=== PATIENT | female | born 1965 | race Caucasian/White ===

== ENCOUNTER 2017-10-18 12:53 | Emergency (ER) | payer MEDICARE, OTHER ==
[~2017-10-18] VITALS: Ht 170.2 cm; Wt 72.7 kg
[2017-10-18] MEDS ORDERED: KETOROLAC TROMETHAMINE 60 MG/2 ML VIAL IM ONE (15:15)
[2017-10-18 16:15] VITALS: BP 126/68
== END 2017-10-18 16:30 | disposition home or self-care (01) ==
LOC: EMS 12:55
DX: S76.811A Strain of other specified muscles, fascia and tendons at thigh level, right thigh, initial encounter (principal); G89.29 Other chronic pain; M54.5 Low back pain; Z91.030 Bee allergy status; Z88.1 Allergy status to other antibiotic agents; X58.XXXA Exposure to other specified factors, initial encounter; Y93.89 Activity, other specified; Y92.89 Other specified places as the place of occurrence of the external cause; Y99.8 Other external cause status
CPT/HCPCS: 96372; 99283; J1885

== ENCOUNTER 2017-12-21 13:40 | Emergency (ER) | payer MEDICARE, OTHER ==
[~2017-12-21] VITALS: Ht 167.6 cm; Wt 102.0 kg
[2017-12-21] MEDS ORDERED: GABA-531 PO (14:02)
[2017-12-21] MEDS ORDERED: VENL-67 PO (14:02)
[2017-12-21] MEDS ORDERED: IBUP-2070 PO (14:02)
[2017-12-21] MEDS ORDERED: OLAN10TA3 PO (14:02)
[2017-12-21] MEDS ORDERED: LORA-192 PO (14:02)
[2017-12-21] MEDS ORDERED: ARIP15TA7 PO (14:02)
[2017-12-21] MEDS ORDERED: PERCT10 PO (14:02)
[2017-12-21] MEDS ORDERED: KETOROLAC TROMETHAMINE 60 MG/2 ML VIAL IM ONE (14:15)
[2017-12-21] MEDS ORDERED: HYDROCODONE/ACETAMINOPHEN 5-325 MG TABLET PO ONE (14:15)
[2017-12-21 15:26] VITALS: BP 106/62
== END 2017-12-21 16:02 | disposition home or self-care (01) ==
LOC: EMS 13:41
DX: S93.401A Sprain of unspecified ligament of right ankle, initial encounter (principal); S93.402A Sprain of unspecified ligament of left ankle, initial encounter; S76.011A Strain of muscle, fascia and tendon of right hip, initial encounter; Z98.890 Other specified postprocedural states; Z88.1 Allergy status to other antibiotic agents; Z91.030 Bee allergy status; Z79.899 Other long term (current) drug therapy; X58.XXXA Exposure to other specified factors, initial encounter; Y93.89 Activity, other specified; Y92.89 Other specified places as the place of occurrence of the external cause; Y99.8 Other external cause status
CPT/HCPCS: 96372; 99283; J1885

== ENCOUNTER 2018-03-10 13:53 | Emergency (ER) | payer MEDICARE, OTHER ==
[~2018-03-10] VITALS: Ht 170.2 cm; Wt 72.7 kg
[~2018-03-10 13:53] MED LIST: ARIP15TA7 PO; GABA-531 PO; IBUP-2070 PO; LORA-192 PO; OLAN10TA3 PO; PERCT10 PO; VENL-67 PO
[2018-03-10] MEDS ORDERED: KETOROLAC TROMETHAMINE 30 MG/ML VIAL IM ONE (17:00)
[2018-03-10] MEDS ORDERED: CYCLOBENZAPRINE HCL 10 MG TABLET PO ONE (17:00)
[2018-03-10] MEDS ORDERED: LORA0.5T2 PO (17:02)
[2018-03-10 18:39] VITALS: BP 117/66
== END 2018-03-10 19:10 | disposition home or self-care (01) ==
LOC: EMS 13:54
DX: G89.29 Other chronic pain (principal); M25.551 Pain in right hip; M54.5 Low back pain; Z91.030 Bee allergy status; Z88.8 Allergy status to other drugs, medicaments and biological substances; Z79.899 Other long term (current) drug therapy; W19.XXXA Unspecified fall, initial encounter; Y93.89 Activity, other specified; Y92.89 Other specified places as the place of occurrence of the external cause; Y99.8 Other external cause status
CPT/HCPCS: 73502; 96372; 99284; J1885

== ENCOUNTER 2018-05-01 15:59 | Emergency (ER) | payer MEDICARE, OTHER ==
[~2018-05-01] VITALS: Ht 170.2 cm; Wt 68.2 kg
[~2018-05-01 15:59] MED LIST changes: -LORA-192 PO; +LORA0.5T2 PO
[2018-05-01] MEDS ORDERED: ARIP20TA PO (16:19)
[2018-05-01 16:59] VITALS: BP 105/55
== END 2018-05-01 17:28 | disposition left against medical advice (07) ==
LOC: EMS 16:01
DX: M25.571 Pain in right ankle and joints of right foot (principal); M25.572 Pain in left ankle and joints of left foot; Z53.21 Procedure and treatment not carried out due to patient leaving prior to being seen by health care provider

== ENCOUNTER 2018-05-02 15:44 | Emergency (ER) | payer MEDICARE, OTHER ==
[~2018-05-02] VITALS: Ht 170.2 cm; Wt 75.0 kg
[~2018-05-02 15:44] MED LIST changes: +ARIP20TA PO; -OLAN10TA3 PO
[2018-05-02] MEDS ORDERED: OxyCODONE HCL/ACETAMINOPHEN 5-325 MG TABLET PO ONE (17:00)
[2018-05-02 17:08] VITALS: BP 122/70
== END 2018-05-02 17:13 | disposition home or self-care (01) ==
LOC: EMS 15:45
DX: M79.604 Pain in right leg (principal); M79.605 Pain in left leg; G89.29 Other chronic pain; E78.00 Pure hypercholesterolemia, unspecified; F12.90 Cannabis use, unspecified, uncomplicated; Z88.1 Allergy status to other antibiotic agents; Z91.030 Bee allergy status